=== PATIENT | male | born 1935 | race Caucasian/White ===

== ENCOUNTER 2017-03-02 08:37 | Inpatient (IN) ==
--- NOTE | 2017-03-01 16:29 | Discharge Summary ---
<Moody Rolle - Last Filed: 03/03/17 08:06> Date of Encounter: 03/03/17 - Discharge Diagnosis (1) Arthritis of right hip Priority: Primary Status: Acute (2) HTN (hypertension) Priority: Secondary Status: Chronic Qualifiers: Hypertension type: essential hypertension Qualified Code(s): I10 - Essential (primary) hypertension (3) KEVIN (obstructive sleep apnea) Priority: Secondary Status: Chronic (4) Acute blood loss anemia Priority: Primary Status: Acute - Discharge Medications Home Medications: Aspirin Enteric Coated [Aspirin EC] 325 mg PO DAILY #21 tablet.dr 03/01/17 [Rx] OxyCODONE Immed Rel [Roxicodone 5 MG] 5 - 10 mg PO Q6HR PRN #40 tablet 03/01/17 [Rx] Aspirin [Lo-Dose Aspirin EC] 81 mg PO DAILY 03/02/17 [History] Docusate [Colace] 100 mg PO DAILY PRN 03/02/17 [History] Losartan Potassium [Cozaar] 50 mg PO DAILY 03/02/17 [History] Naproxen Sodium [All Day Pain Relief] 220 mg PO Q12H PRN 03/02/17 [History] Oxybutynin Chloride [Ditropan Xl] 15 mg PO DAILY 03/02/17 [History] Simvastatin [Zocor] 80 mg PO HS 03/02/17 [History] Tramadol HCl [Ultram] 50 mg PO BID PRN 03/02/17 [History] Allergies/Adverse Reactions: Allergies No Known Allergies Allergy (Verified 03/02/17 09:22) Primary care physician: Nic Mann, - Discharge Instructions Follow Up With: Moody Rolle MD [Partnered Physician] - 03/30/17 5:05 pm Mckenna Huertas PAC [Physician Turbine Inspector] - 03/10/17 10:15 am Additional Instructions: Discharge Instructions: Total Hip Replacement Please call [facility] ([phone]), your Primary Care Physician, or report to the Emergency Room if you have any of the following symptoms: Nausea, vomiting, fever greater that 101.5, swelling, chest pain, shortness of breath, increased pain/redness/drainage/odor for your incision site, numbness/ tingling, or any other concerning symptoms. ACTIVITY:Weight-bearing as tolerated for 8 weeks with hip dislocation precautions that physical therapy taught you. You may progress as tolerated under the guidance of your physical therapist. You do not need to sleep with a pillow between your legs. You can also seep on the operative side or on your stomach. MEDICATIONS: Upon discharge resume your home medications. Take all the medications as prescribed. Take a stool softener if taking narcotic pain medications. Stool softeners are only effective if you drink enough fluids. Drink 6-8 glass of water or fluids a day, unless this is not allowed for another health problem. Despite using stool softeners, if you haven't had a bowel movement in 3 days, please switch to a gentle laxative. Gentle laxatives are sold over the counter. You should have a bowel movement within 24 hours, if not call the office. You will be discharged from the hospital with a prescription for pain medication. You are encouraged to decrease the use of narcotic pain medication as tolerated. Should you require a refill, please call the office. [facility] prescribes narcotic pain medication for only 4-6 weeks after surgery. If you require pain medication beyond this time period, you may be referred to your Primary Care Physician or to the Pain Clinic for further evaluation. Plan ahead for refills on pain medication as many narcotics either need to be picked up at the office or mailed. It is best to call 48-72 hours in advance of needing a prescription refill so you don't run out of medication. To help control the post-operative pain, you may take NSAIDs (Aleve,Advil, Motrin, ibuprofen, naprosyn) or Tylenol as prescribed on the bottle in addition to the pain medication. ANTICOAGULATION (blood thinners): Continue your Aspirin, Lovenox or Coumadin as prescribed to help prevent a blood clot in the leg or in the lungs. As long as your incision remains dry and you tolerate the NSAIDs (Aleve, Advil, Motrin, Ibuprofen, Naprosyn), it is OK to use the NSAIDS while you are taking your anticoagulation medication. Should your incision start to drain, stop the NSAID and contact our office. Common symptoms of blood clot in the legs include: localized pain, swelling, calf tenderness, redness or discoloration of the skin. Blood clot in the lung symptoms include: shortness of breath, rapid pulse, sweating, and chest pain that worsens with deep breathing, coughing up blood, lightheadedness, feelings of anxiety. If you experience any of these symptoms notify your physician immediately, go to the emergency room, or if having trouble breathing, call 911. WOUND CARE: Leave the dressing on for 7 to 10days. You may change the dressing if it is saturated greater than 50%. Do not get the dressing wet at anytime. Wash your hands with antibacterial soap, rinse and dry prior to any wound care. If you have marcella the visiting nurse or rehab facility can remove the stapes 10-14 days after surgery and place steri-strips across the wound. Leave the steri-strips in place until they fall off on their own. You may let water from the shower run on top of the steri-strips. If you do not have a visiting nurse or rehab facility, you will need to return to the office at 10-14 days for the marcella to be removed. If you have itching or redness around the dressing call the office. FOLLOW-UP: Please follow up with your surgeon in the orthopedic clinic in 6 weeks from the day of surgery. If you have marcella that need to be removed, you will need to come back to the office in 10-14 days from the day of surgery. - Hospital Course Hospital course: Mr. Pillai is a 81 year old male - Time Spent with Patient Total time spent providing and/or coordinating discharge services: <Mckenna Huertas - Last Filed: 03/06/17 20:51> Date of Encounter: 03/03/17 Time of Encounter: 20:51 - Discharge Diagnosis (1) Arthritis of right hip Priority: Primary Status: Acute (2) HTN (hypertension) Priority: Secondary Status: Chronic Qualifiers: Hypertension type: essential hypertension Qualified Code(s): I10 - Essential (primary) hypertension (3) KEVIN (obstructive sleep apnea) Priority: Secondary Status: Chronic Primary care physician: Nic Mann, - Hospital Course Hospital course: Mr. Pillai is a 81 year old male - Time Spent with Patient Total time spent providing and/or coordinating discharge services:
--- NOTE | 2017-03-02 08:55 | History & Physical Report ---
Date of Encounter: 03/02/17 Time of Encounter: 08:54 24 Hour HP Update - Instructions Instructions: If the History and Physical is less than 30 days old and was completed prior to A.M. admission and or procedure and has NOT been updated on calendar day of procedure please complete this update prior to performing procedure. - Update Patient reports changes in Medical Condition: No Changes in examination, assessment, or condition: No Changes in Medication: No Preop tests/diagnostics Reviewed: Yes Surgery Remains Indicated: Yes Consent for Planned Operative Procedure(s) Verified: Yes - Pre-Operative Checklist Preoperative Checklist Indicated: No Prophylactic Antibiotic Ordered: Yes Is VTE Prophylaxis Indicated?: Yes
[2017-03-02] MEDS ORDERED: CeFAZolin Pre 2,000 MG/100 ML 2,000 MG/100 ML BAG IVPB ONE (08:58)
[2017-03-02] MEDS ORDERED: Ringers Solution, Lactated 1,000 ML IVC SCH ×2 (09:00→13:11)
--- NOTE | 2017-03-02 09:03 | Anesthesia Evaluation PreOp ---
Date of Encounter: 03/02/17 Time of Encounter: 09:01 - Past History Planned Operation: Right Total Hip SArthroplasty Cardiac History: HTN, Hyperlipidemia, Cardiac Stent (x1 7-8 years ago,) Pulmonary History: KEVIN Dx WEIGHT CLERK History: Denies Any Significant HX Other Medical History: Denies Any Significant HX Anesthesia History: No Prior Anesthetic Complications, Past Anesthesia (Back sx x 2, Hernia, Cardiac Stent) Alcohol Use: none Drug use: none Medications and Allergies Aspirin Enteric Coated [Aspirin EC] 325 mg PO DAILY #21 tablet.dr 03/01/17 [Rx] OxyCODONE Immed Rel [Roxicodone 5 MG] 5 - 10 mg PO Q6HR PRN #40 tablet 03/01/17 [Rx] Aspirin [Lo-Dose Aspirin EC] 81 mg PO DAILY 03/02/17 [History] Docusate [Colace] 100 mg PO DAILY PRN 03/02/17 [History] Losartan Potassium [Cozaar] 50 mg PO DAILY 03/02/17 [History] Naproxen Sodium [All Day Pain Relief] 220 mg PO Q12H PRN 03/02/17 [History] Oxybutynin Chloride [Ditropan Xl] 15 mg PO DAILY 03/02/17 [History] Simvastatin [Zocor] 80 mg PO HS 03/02/17 [History] Tramadol HCl [Ultram] 50 mg PO BID PRN 03/02/17 [History] Allergies No Known Allergies Allergy (Verified 03/02/17 09:22) - Meds/Allergy Pre-op Review Medications Reviewed: Yes Allergies Reviewed: Yes Beta Blockers on Current Med List: No Anesthesia Results - Labs Laboratory Tests 02/21/17 02/21/17 02/21/17 14:46 14:46 14:46 WBC 7.0 Hgb 11.1 L Hct 36.3 L Plt Count 196 INR 1.1 Sodium 140 Potassium 4.7 H Chloride 107 Carbon Dioxide 25 BUN 22 Creatinine 1.06 - Imaging EKG: image reviewed (NSR) Anesthesia Exam O2 Sat Height 1.68 m Weight 79.832 kg O2 Sat Height 1.68 m Height 1.68 m Weight 79.832 kg Weight 79.832 kg O2 Sat by Pulse Oximetry 96 Vital Signs Temp Pulse Resp BP Pulse Ox 98.3 F 68 18 126/76 96 03/02/17 09:23 03/02/17 09:23 03/02/17 09:23 03/02/17 09:23 03/02/17 09:23 Height: 5'6'' Weight: 176# NPO (# of Hours): > 8 hrs Pain Scale: 0 Pain Scale Used: Numeric (1 - 10) - HEENT Pupil (Motor): Pupils equal, EOMI Mallampati: II Teeth: Edentulous Denture Type: Upper: Complete, Lower: Complete Oral Opening: Greater than 3 - WEIGHT CLERK LOC: Oriented WEIGHT CLERK Motor: Normal RUE, Normal LUE, Normal RLE, Normal LLE, Normal Face WEIGHT CLERK Sensory: Normal: RUE, LUE, RLE, LLE, Face - Cardiac Rhythm: Regular Murmur: None JVD: No Carotid Bruit: No - Pulmonary Breath Sounds: bilateral Clear Respiratory Effort: Symmetrical Anesthesia Assess/Plan ASA Score: 3 Modified Sperry Scale for Level of Consciousness: Cooperative, oriented, and tranquil Anesthetic Plan: General Autologous Blood: Yes Monitoring Plan: Standard Monitors Recovery Plan: PACU
[2017-03-02] MEDS ORDERED: *HR* FentaNYL (PF) 100 MCG/2 ML VIAL ONE ×3 (09:25→11:01)
[2017-03-02] MEDS ORDERED: *HR* Propofol 200 MG/20 ML VIAL IVP ONE ×2 (09:25→09:54)
[2017-03-02] MEDS ORDERED: Lidocaine -MPF 2% 2 ML VIAL ONE ×2 (09:26→09:54)
[2017-03-02] MEDS ORDERED: *HR* Rocuronium Bromide 50 MG/5 ML VIAL ONE (09:27)
[2017-03-02] MEDS ORDERED: *HR* Labetalol 100 MG/20 ML MDV IVP PRN (09:59)
[2017-03-02] MEDS ORDERED: Ondansetron 4 MG/2 ML VIAL IVP ONE (09:59)
[2017-03-02] MEDS ORDERED: Lidocaine -MPF 4% 5 ML AMPUL ONE (10:04)
[2017-03-02] MEDS ORDERED: *HR* Succinylcholine 200 MG/10 ML VIAL IVP ONE (10:04)
[2017-03-02] MEDS ORDERED: EPHEDrine 50 MG/ML VIAL ONE (10:50)
--- NOTE | 2017-03-02 11:27 | Orthopedic Operative Note ---
Date of procedure: 03/02/17 Pre-op diagnosis: Right hip arthritis Post-op diagnosis: same Procedure: Procedure: Right Total Hip Replacment Estimated blood loss: 200 cc Hardware: Metal and polyethylene replacement. Biomet DM Cup: 56 G7 fin cup Femoral size 15 echo full profile lateralized stem Head: +6 head with Amber Procedural Notes: 4 arthritic changes femoral head acetabular socket. Operative procedure: The patient was brought to the operating room and placed on the operating room table. After general anesthesia was administered the patient was placed in the lateral decubitus position with the operative leg up. All pressure points were padded appropriately and the head was stabilized in the neutral position. The operative extremity was prepped and draped in the sterile surgical fashion patient received IV antibiotic prior to skin incision. A standard posterior approach is made to the operative hip, the incision was made through the skin and subcutaneous tissue hemostasis was obtained with Bovie cautery. Using careful sharp dissection the fascia was identified and incised exposing the external rotators. The external rotators were released off the greater trochanter and tagged with #2 FiberWire suture. The capsule was T'd open and the hip was brought into internal rotation. Patient noted to have grade 4 arthritic changes femoral head. The femoral neck cut was made at the appropriate level. An anterior capsulotomy was performed for the anterior retractor. Soft tissues removed from the acetabulum. Patient noted to have grade 4 arthritic changes acetabulum. Acetabulum was first reamed medially, and then reamed in 15 degrees of anteversion and 45 degrees off the horizontal. It was reamed up to the appropriate size 66 The appropriate-sized 56 acetabular cup was impacted in place in 15 degrees of anteversion and 45 degrees off the horizontal. This had good fit and fixation. The hip was brought back in to internal rotation and prepared with the drink box mechanic followed by the canal finder followed by broaching process in 20 degrees anteversion. It was broached up to the appropriate size 15 The femoral implant was impacted in place in 20 degrees of anteversion. Trial reduction found the hip to be stable with +6 head and Amber. The trials were removed and the real implants were impacted in place. The hip was reduced, patient had apparent equal leg lengths. The hip had excellent stability with forward flexion to 90 degrees adduction of 30 degrees and internal rotation of 60 degrees. The hip had no shuck. The hips after 2 minutes with a Betadine saline solution. It was irrigated out with 2 L of pulse irrigation. The external rotators were reattached to drill holes in the greater trochanter. Fascia was closed with a running #2 PDS suture. The deep tissue was irrigated and closed deep with #1 PDS suture superficially with 0 PDS suture and skin was closed with Dermabond and skin marcella. The patient was placed in a sterile dressing and abduction pillow. The patient was extubated and transferred to the recovery room in stable condition. Anesthesia: GETA Surgeon: Moody Rolle Condition: stable Disposition: PACU
[2017-03-02] MEDS: *HR* HYDROmorphone (PF) 1 MG/ML SYRINGE IVP PRN ×4 (12:08→17:17)
[2017-03-02 12:13] LABS: Hematocrit 29.5 % (37.5-50.1); Hemoglobin 9.2 g/dL (12.9-16.9)
[2017-03-02] MEDS ORDERED: Acetaminophen IV 1,000 MG/100 ML INFUS..BTL IVPB ONE (12:23)
[2017-03-02] MEDS ORDERED: Ketorolac 30 MG/ML VIAL IVP ONE (12:23)
--- NOTE | 2017-03-02 13:09 | Anesthesia Evaluation Post Op ---
Date of Encounter: 03/02/17 Time of Encounter: 13:08 - Vital Signs Vital Signs: Vital Signs/O2 Sat, Most Current Temp Pulse Resp BP Pulse Ox 97.6 F 72 16 121/65 99 03/02/17 12:50 03/02/17 13:00 03/02/17 13:00 03/02/17 13:00 03/02/17 13:00 - Lungs Lungs: Clear Ascult./Percussion - Airway Airway: Non-obstructed - Cardiovascular Regular Rate - Mental Status Mental Status: Alert & Oriented, Answers Appropriately - Pain Pain Scale: 0 Pain Scale used: Numeric (1 - 10) - Nausea Vomiting Nausea Vomiting: Not Present - Hydration Hydration: NPO, Has not voided - Discharge PostOp Status: Transfer Patient to floor
[2017-03-02] MEDS ORDERED: *HR* OxyCODONE Immed Rel 5 MG TABLET PO PRN (13:11)
[2017-03-02] MEDS ORDERED: Sennosides 8.6 MG TABLET PO PRN (13:11)
[2017-03-02] MEDS ORDERED: Naloxone 0.4 MG/ML INJ IVP PRN (13:11)
[2017-03-02] MEDS ORDERED: MOM Conc 10 ML UD.LIQ PO PRN (13:11)
[2017-03-02] MEDS ORDERED: Temazepam 15 MG CAPSULE PO PRN (13:11)
[2017-03-02] MEDS: ceFAZolin 2,000 MG in D5% in Water 100 ML IVPB SCH ×2 (16:13→23:39)
[2017-03-02] MEDS: Ascorbic Acid 500 MG TABLET PO SCH (16:20)
[2017-03-02] MEDS: *HR* Enoxaparin 30 MG/0.3 ML SYRINGE SQ SCH (17:17)
[2017-03-02] MEDS: Ondansetron 4 MG/2 ML VIAL IVP PRN (17:17)
[2017-03-02] MEDS ORDERED: *HR* Enoxaparin 30 MG/0.3 ML SYRINGE SQ SCH (18:00)
[2017-03-02] MEDS: *HR* OxyCODONE Immed Rel 5 MG TABLET PO PRN (22:56)
[2017-03-03] MEDS: *HR* HYDROmorphone (PF) 1 MG/ML SYRINGE IVP PRN ×2 (01:25→08:10)
[2017-03-03 05:50] LABS: Hematocrit 24.2 % (37.5-50.1)
[2017-03-03 05:51] LABS: Hemoglobin 7.6 g/dL (12.9-16.9)
[2017-03-03 06:08] LABS: BUN/Creatinine Ratio 22 (6-26); Blood Urea Nitrogen 23 mg/dL (8-26); Calcium 8.3 mg/dL (8.6-10.8); Carbon Dioxide 28 mEq/L (19-29); Chloride 106 mEq/L (98-109); Glucose 114 mg/dL (70-99); Osmolality,Calculated 291 (280-300); Potassium 4.6 mEq/L (3.5-4.5); Sodium 138 mEq/L (136-145); eGFR For African Americans > 60 (> 60); eGFR For Non-African Americans > 60 (> 60)
[2017-03-03] MEDS ORDERED: Furosemide 20 MG/2 ML VIAL IVP PRN (06:24)
[2017-03-03] MEDS: *HR* Enoxaparin 30 MG/0.3 ML SYRINGE SQ SCH ×2 (06:25→17:00)
[2017-03-03] MEDS: Ascorbic Acid 500 MG TABLET PO SCH ×2 (08:06→17:19)
[2017-03-03] MEDS: Aspirin Enteric Coated 81 MG Tablet PO SCH (08:07)
[2017-03-03] MEDS: Multivit/Ca/Min/Fe/FA 1 TAB TABLET PO SCH (08:07)
--- NOTE | 2017-03-03 08:07 | Orthopedics Progress Note ---
Date of Encounter: 03/03/17 Time of Encounter: 08:07 - Assessment and Plan (1) Arthritis of right hip Current Visit: Yes Status: Acute (2) HTN (hypertension) Current Visit: Yes Status: Chronic Qualifiers: Hypertension type: essential hypertension Qualified Code(s): I10 - Essential (primary) hypertension (3) KEVIN (obstructive sleep apnea) Current Visit: Yes Status: Chronic (4) Acute blood loss anemia Current Visit: Yes Status: Acute Subjective Interval history: Patient was seen this morning doing well without complaints. Afebrile vital signs stable. Operative extremity: Neurovascularly intact Dressing clean dry and intact Calves nontender Assessment and plan: Continue with postoperative care Hematocrit 24, transfused 2 units Objective Vital signs: Vital Signs Temp Pulse Resp BP Pulse Ox 03/03/17 06:41 98.4 F 82 18 105/67 97 03/03/17 05:12 99.4 F 84 17 110/62 99 03/02/17 23:48 98.2 F 80 15 110/63 99 03/02/17 18:35 97.7 F 89 15 101/62 100 03/02/17 16:05 97.7 F 83 12 106/67 97 03/02/17 15:29 97.7 F 14 114/65 100 03/02/17 14:26 96.7 F L 79 14 114/70 99 03/02/17 13:55 97.6 F 78 14 116/69 99 03/02/17 13:26 97.7 F 71 14 122/61 99 03/02/17 13:19 74 14 122/68 98 03/02/17 13:10 97.6 F 74 14 129/67 98 03/02/17 13:00 72 16 121/65 99 03/02/17 12:50 97.6 F 59 16 129/72 98 03/02/17 12:40 65 12 133/72 99 03/02/17 12:30 69 16 129/75 99 03/02/17 12:20 97.8 F 69 16 127/74 99 03/02/17 12:10 72 16 132/74 96 03/02/17 12:00 78 14 137/75 97 03/02/17 11:50 97.6 F 90 12 140/81 96 03/02/17 09:23 98.3 F 68 18 126/76 96 Intake and Output 03/02/17 03/03/17 03/03/17 23:59 07:59 15:59 Intake Total 325 / 325 Output Total 750 / 750 200 / 200 Balance -425 / -425 -200 / -200 Intake: IV Fluids 100 / 100 Ancef 2,000 MG In 100 / 100 Dextrose 5% 100 ML @ 200 mls/hr IVPB Q8HR [facility] Rx#: [id number] Oral 225 / 225 Output: Urine 250 / 250 200 / 200 Emesis 500 / 500 Other: Meal Dinner Percent of Meal Consumed 0% - Labs CBC & BMP: 03/03/17 04:52 03/03/17 04:52 Labs: Abnormal lab results Hgb 7.6 g/dL (12.9-16.9) L D 03/03/17 04:52 Hct 24.2 % (37.5-50.1) L 03/03/17 04:52 Potassium 4.6 mEq/L (3.5-4.5) H 03/03/17 04:52 Glucose 114 mg/dL (70-99) H 03/03/17 04:52 Calcium 8.3 mg/dL (8.6-10.8) L 03/03/17 04:52 - VTE Documentation of Mechanical Device: Venous foot pump, device Consult Discharge Plan - Plan Referrals: Nic Mann MD [Primary Care Provider] -
[2017-03-03] MEDS: *HR* OxyCODONE Immed Rel 5 MG TABLET PO PRN ×2 (14:10→20:20)
[2017-03-03] MEDS: 0.9 % Sodium Chloride 250 ML ONE ×2 (16:33→20:21)
[2017-03-03] MEDS: Ondansetron 4 MG/2 ML VIAL IVP PRN (17:21)
[2017-03-03] MEDS ORDERED: 0.9 % Sodium Chloride 250 ML ONE (20:16)
[2017-03-04 05:19] LABS: BUN/Creatinine Ratio 22 (6-26); Blood Urea Nitrogen 20 mg/dL (8-26); Calcium 8.4 mg/dL (8.6-10.8); Carbon Dioxide 28 mEq/L (19-29); Chloride 102 mEq/L (98-109); Glucose 95 mg/dL (70-99); Osmolality,Calculated 284 (280-300); Potassium 4.1 mEq/L (3.5-4.5); Sodium 136 mEq/L (136-145); eGFR For African Americans > 60 (> 60); eGFR For Non-African Americans > 60 (> 60)
[2017-03-04] MEDS: *HR* OxyCODONE Immed Rel 5 MG TABLET PO PRN ×2 (05:19→11:20)
[2017-03-04 05:22] LABS: Hematocrit 28.1 % (37.5-50.1); Hemoglobin 8.9 g/dL (12.9-16.9)
[2017-03-04] MEDS: *HR* Enoxaparin 30 MG/0.3 ML SYRINGE SQ SCH (05:32)
[2017-03-04] MEDS: Aspirin Enteric Coated 81 MG Tablet PO SCH (08:37)
[2017-03-04] MEDS: Multivit/Ca/Min/Fe/FA 1 TAB TABLET PO SCH (08:37)
[2017-03-04] MEDS: Ascorbic Acid 500 MG TABLET PO SCH (08:37)
[2017-03-04 11:32] VITALS: BP 121/63
== END 2017-03-04 14:30 | disposition home or self-care (01) | DRG 470 ==
LOC: SAMDAY 08:37 → 3NENU 14:04
PROVIDERS: ADMIT Orthopaedic Surgery; ATTEND Orthopaedic Surgery